=== PATIENT | female | born 1955 | race Caucasian/White ===

== ENCOUNTER 2020-08-31 13:35 | Outpatient (RCR) | payer OTHER, SELFPAY ==
[2020-08-31] MEDS: COVID-19 VACC, MRNA(PFIZER)/PF 30 MCG/0.3 ML SYRINGE IM (08:08)
[2020-09-21] MEDS: COVID-19 VACC, MRNA(PFIZER)/PF 30 MCG/0.3 ML SYRINGE IM (08:07)
== END 2020-11-28 23:59 ==
LOC: IMMUN 13:35
PROVIDERS: Visit Provider Family Medicine
DX: Z23 Encounter for immunization (principal)
CPT/HCPCS: 0001A; 0002A; 91300

== ENCOUNTER 2024-03-31 14:00 | Outpatient (RCR) | payer MEDICARE, OTHER, SELFPAY ==
--- NOTE | 2024-02-24 12:08 | HP.SP.EV_ITS ---
Visit History Visit Info Date of Eval: 02/20/24 Visit: [employer] Carpenter: KACEY Topete Attending Doctor: Referring Doctor: Reason for Referral: WORD FINDING DIFFICULTY, RX HERE Medical Diagnosis: Dementia Date of Onset of Diagnosis: 11-07-23 Previous speech therapy: No Results: n/a Other Relevant Medical History/Diagnoses/Surgery: Dementia, spouse reports, very rare form of dementia that I can't pronounce, but it eventually takes all her words. Patient is followed by neurologist, however spouse is not able to recall the name or city. INTERACTIVE MEDIA DIRECTOR instructed patient to locate name of neurologist for medical record sharing and determine appropriate goals for POC. Medications related to this diagnosis: Memantine, Sertraline Smoking Status: Never smoker Diagnosis Diagnosis: Cognitive Communication Deficit Pain Is pain an issue with your current prescribed condition?: No Personal Preferred language: Slovak Cognitive Linguistic Comments Comments Parent Education: -: Patient accompanied by spouse for session. Spouse reports minimal understanding of her dementia diagnosis and the impact on communication. Spouse asking why patient is no longer able to write, ?remember? biographical information, family members, etc. 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 Skilled ST indicated 1w6 as treatment of speech-language to provide caregiver education for aphasia management. Qualitative Evaluation: -: - 1-step directions: 50% w/ max cues - Simple y/n questions: 80% - Open ended questions: 0% - Verbalize biographical info: 0% independently, 50% with 2-option MC questions - Spoken language expression severely impacting by anomia. Attempted [place] Naming Test with minimal success. Confrontational naming 0/10, with patient pointing to and vaguely describing various aspects of picture (house=looking out a window, hammock=there's a net). Reading comprehension for word-picture matching during BNT at single word level from field of 3= 10/10. - Able to point to correct biographical info from written field of 2-3 options. Reference: Neuro-QoL instrument Radiation Oncology Patient Plan Plan Plan: Will recommend Pt for weekly outpatient speech therapy intervention address severe mixed receptive and expressive aphasia and moderate cognitive deficits. Pt would benefit from education in basic communication with family and potentially augmentative communication. Pt would also benefit from cognitive training to improve attention, executive functioning, and visuospatial skills. Without skilled intervention Pt is at risk for communicating basic, medical, emergent, social wants & needs, and interacting with family/friends at home, and during social interactions. Recommendations Treatment Warranted: Yes Comment: Caregiver education for communication deficits associated with Dementia impacting participation in ADLs, conveying basic/medical needs, and socialization Progress Prognosis: Fair Frequency Frequency: 1x/Week Duration: 6 Weeks Visits in this POC: 6 Patient/Family Goal Patient/Family Goal: Help me understand all this referring to dementia and aphasia Goals that are Established Determination:: Goals will be added/modified as deemed necessary and appropriate. Therapy will be discontinued when results of re-evaluation indicate therapy is no longer needed or lack of progress has been documented. Goal #1-5 Goal #1: Patient will participate in reading comprehension and symbols/picture recognition tasks to establish effective means of expressive/receptive communication, alternative forms of communication, and appropriate level of caregiver assistance with 80% accuracy as trained by INTERACTIVE MEDIA DIRECTOR. Goal #2: Patient will participate in simple auditory comprehension tasks (yes/no questions, multiple choice questions, following directions) to establish effective means of expressive/receptive communication, alternative forms of communication, and appropriate level of caregiver assistance with 80% accuracy as trained by INTERACTIVE MEDIA DIRECTOR. Goal #3: Patient will participate in expressive language tasks with verbal/symbolic/written prompts to establish effective means of expressive/receptive communication , alternative forms of communication, and appropriate level of caregiver assistance with 80% accuracy as trained by INTERACTIVE MEDIA DIRECTOR. Education Patient has Indicated that the Following Identified Educational Needs: Cognitively Impaired and Other Other Educational Needs: Health literacy The Patient has indicated that they have no educational or learning abilities that may effect their care.: No Patient Instruction Patient Education: Diagnosis, Treatment Plan and Goals Other Education: Instructed spouse to discuss concerns with neurologist: perseverating on traumatic event from past and possible hallucinations or delusions Person Taught: Family Teaching Method: Discussion, Demonstration and Audiovisual Response to teaching: Reinforcement Needed
--- NOTE | 2024-06-02 15:24 | HP.SP.DC_ITS ---
ST Discharge Summary Discharged: Discharge: PAUL CONTRERAS is a 68 year old female who was seen for initial receptive and expressive language evaluation at [facility] on 02/20/2024 secondary to dx of primary progressive aphasia. Pt attended 7 sessions from initial evaluation targeting total communication, introduction to low-tech and high-tech augmentative alternative communication, answering y/n questions, following 1-2 step directions, and education re: semantic feature analysis. Pt being discharged from speech therapy caseload on this date, 06/02/2024, secondary to additional therapy sessions not being scheduled after last session. Throughout the course of intervention, Pt demonst rating limited progress with answering y/n questions, following directions, and understanding the concept of low or high tech AAC (sent home a trial device). Thank you for allowing me to participate the care of your Pt. Will reevaluate at Pt?s request following script from physician.
== END 2024-03-31 19:00 | disposition home or self-care (01) ==
LOC: SP 14:00
DX: R47.89 Other speech disturbances (principal); F03.90 Unspecified dementia, unspecified severity, without behavioral disturbance, psychotic disturbance, mood disturbance, and anxiety
CPT/HCPCS: 92507; 92523